=== PATIENT | male | born 1960 | race Two or more races ===

== ENCOUNTER 2016-08-30 07:04 | Emergency (ER) | payer OTHER ==
[~2016-08-30] VITALS: Ht 167.6 cm; Wt 81.6 kg
--- NOTE | 2016-08-30 07:15 | NUR ---
PATIENT ARRIVED TO ER C/O RIGHT EYE DISCOMFORT. PATIENT'S VITALS STABLE. SAFTEY AND COMFORT MEASURES IN PLACE. AWAITING MD ORDERS.
[2016-08-30] MEDS ORDERED: FLUORESCEIN SODIUM OPHTH 1 EA STRIP ONE ×2 (07:56→08:13)
[2016-08-30] MEDS ORDERED: TETRACAINE HCL/PF 0.5% UD 2 ML BOTTLE ONE (07:56)
[2016-08-30] MEDS ORDERED: TETRACAINE HCL/PF 0.5% UD 2 ML BOTTLE RIGHTEYE ONE (08:00)
[2016-08-30] MEDS ORDERED: FLUORESCEIN SODIUM OPHTH 1 EA STRIP OP ONE (08:00)
--- NOTE | 2016-08-30 08:34 | NUR ---
PATIENT CLEARED FOR DISCHARGE. PATIENT PROVIDED WITH PRESCRIPTION. EDUCATION PROVIDED. PATIENT LEFT WITH VIA PRIVATE CAR.
[2016-08-30 08:38] VITALS: BP 131/84
== END 2016-08-30 08:48 | disposition home or self-care (01) ==
LOC: ER 07:07
DX: L03.213 Periorbital cellulitis (principal); X58.XXXA Exposure to other specified factors, initial encounter; Y93.89 Activity, other specified; Y92.69 Other specified industrial and construction area as the place of occurrence of the external cause; Y99.0 Civilian activity done for income or pay
CPT/HCPCS: A4606; Z7610

== ENCOUNTER 2024-07-03 16:32 | Emergency (ER) | payer OTHER ==
[~2024-07-03] VITALS: Ht 167.6 cm; Wt 93.0 kg
[2024-07-03] MEDS ORDERED: methylPREDNISolone SOD SUCC 125 MG/2ML VIAL ONE (17:01)
[2024-07-03] MEDS: methylPREDNISolone SOD SUCC 125 MG/2ML VIAL IV ONE (17:01)
[2024-07-03] MEDS ORDERED: FAMOTIDINE/PF INJ 20 MG/2 ML VIAL IV ONE (17:02)
[2024-07-03] MEDS: FAMOTIDINE/PF INJ 20 MG/2 ML VIAL IV ONE (17:06)
[2024-07-03] MEDS ORDERED: EPIN0.1519 IM (18:56)
[2024-07-03] MEDS ORDERED: FAMO20TA80 PO (18:56)
[2024-07-03] MEDS ORDERED: PRED20TA PO (18:56)
[2024-07-03 19:38] VITALS: BP 136/78; TEMP 98; O2SAT 96
== END 2024-07-03 19:39 | disposition home or self-care (01) ==
LOC: ER 16:35
DX: T78.49XA Other allergy, initial encounter (principal); X58.XXXA Exposure to other specified factors, initial encounter
CPT/HCPCS: 99284; 96374; 96375; J1308; J2919